=== PATIENT | male | born 1950 | race Two or more races ===

== ENCOUNTER 2021-05-02 10:30 | Emergency (ER) | payer OTHER, MEDICAID ==
[~2021-05-02] VITALS: Ht 162.6 cm; Wt 61.2 kg
[2021-05-02 11:48] VITALS: BP 164/92
[2021-05-02 13:51] LABS: Urine Bacteria FEW /hpf (None Seen); Urine Blood Negative /uL (Negative); Urine Specific Gravity 1.021 (1.001-1.035); Urine WBC <1 /hpf (0 - 3)
[2021-05-02] MEDS ORDERED: IBUP800T27 PO (14:22)
[2021-05-02] MEDS ORDERED: PRED20TA2 PO (14:22)
== END 2021-05-02 14:27 | disposition home or self-care (01) ==
LOC: ER 10:30
DX: M51.37 Other intervertebral disc degeneration, lumbosacral region (principal); K80.20 Calculus of gallbladder without cholecystitis without obstruction; I10 Essential (primary) hypertension
CPT/HCPCS: 74176; 81001

== ENCOUNTER 2024-02-09 05:32 | Inpatient (IN) | payer OTHER, MEDICAID ==
[~2024-02-09] VITALS: Ht 147.3 cm; Wt 65.6 kg
[~2024-02-09 05:32] MED LIST: IBUP-1456 PO; PRED20TA2 PO
[2024-02-09] MEDS: ONDANSETRON HCL 4 MG/2 ML VIAL IV ONE (06:36)
[2024-02-09] MEDS: MORPHINE SULFATE 4 MG/ML SYR/VIAL IV ONE (06:38)
[2024-02-09] MEDS: SODIUM CHLORIDE 0.9% 500 ML IVB ONE (06:38)
[2024-02-09 06:54] LABS: Basophils # (auto) 0 10 ^3/uL (0-0.2); Basophils % (auto) 0.4 % (0.0-2.0); Eosinophils # (auto) 0.2 10 ^3/uL (0-0.8); Eosinophils % (auto) 1.7 % (0.0-7.0); Hematocrit 45.4 % (41.0-53.0); Hemoglobin 15.4 g/dL (13.5-17.5); Lymphocytes # (auto) 1.2 10 ^3/uL (0.4-5.4); Lymphocytes % (auto) 11.9 % (10.0-50.0); Mean Corpuscular Hemoglobin 28.8 pg (28.0-32.0); Mean Corpuscular Hgb Conc. 33.9 g/dL (32.0-36.0); Monocytes # (auto) 0.3 10 ^3/uL (0-1.3); Monocytes % (auto) 3.2 % (0.0-12.0); Neutrophils # (auto) 8.3 10 ^3/uL (1.6-8.6); Neutrophils % (auto) 82.8 % (37.0-80.0); Platelet Count (auto) 259 10^3/uL (140-450); Red Blood Cells 5.35 10^6/uL (4.5-5.90); Red Cell Distribution Width 13.8 % (11.8-14.3)
[2024-02-09 07:31] LABS: Alanine Aminotransferase 22 U/L (7-40); Albumin 4.3 g/dL (3.2-4.8); Alkaline Phosphatase 124 U/L (46-116); Anion Gap 7 (5-15); Aspartate Aminotransferase 18 U/L (13-40); BUN/Creatinine Ratio 13.9 (10.0-20.0); Blood Urea Nitrogen 14 mg/dL (9-23); Calcium 8.8 mg/dL (8.7-10.4); Carbon Dioxide 24 mmol/L (20-31); Chloride 109 mmol/L (98-107); Glucose 145 mg/dL (74-106); Lipase 37 U/L (12-53); Sodium 140 mmol/L (136-145)
[2024-02-09 07:32] LABS: Bilirubin, Total 0.4 mg/dL (0.2-1.0); Total Protein 6.8 g/dL (5.7-8.2)
[2024-02-09 08:00] VITALS: PULSE 57; O2SAT 97
[2024-02-09 08:41] LABS: Urine Bacteria None Seen /hpf (None Seen)
[2024-02-09 08:54] LABS: Urine Blood Negative /uL (Negative); Urine Clarity Clear (Clear); Urine Color Light-Yellow (Yellow); Urine Protein, UAD Negative (Negative); Urine Specific Gravity 1.014 (1.001-1.035); Urine Urobilinogen Normal (Negative); Urine WBC <1 /hpf (0 - 3); Urine pH 6.5 (5.0-9.0)
[2024-02-09] MEDS: hydrALAZINE HCL 20 MG/ML VL IV ONE (08:56)
[2024-02-09] MEDS ORDERED: PANTOPRAZOLE 40 MG TAB PO SCH (10:45)
[2024-02-09] MEDS ORDERED: MORPHINE SULFATE INJ 2 MG/ml SYRG IV PRN (10:45)
[2024-02-09] MEDS ORDERED: SODIUM CHLORIDE 0.9% 1,000 ML IV SCH (10:45)
[2024-02-09] MEDS ORDERED: ONDANSETRON HCL 4 MG/2 ML VIAL IV PRN ×2 (10:45→11:00)
[2024-02-09] MEDS: SODIUM CHLORIDE 0.9% 1,000 ML IV SCH (11:00)
[2024-02-09 12:38] VITALS: O2SAT 97
[2024-02-09] MEDS: MORPHINE SULFATE INJ 2 MG/ml SYRG IV PRN (13:04)
[2024-02-09 15:10] VITALS: BP 169/77; PULSE 66; RESP 18; TEMP 98.7; O2SAT 98
[2024-02-09 15:26] VITALS: BP 169/77; PULSE 66; RESP 18; TEMP 98.7
[2024-02-09 16:04] VITALS: BP 115/72; PULSE 94; RESP 19; TEMP 98.4; O2SAT 96
[2024-02-09] MEDS: hydrALAZINE HCL 20 MG/ML VL IV PRN (16:19)
[2024-02-09] MEDS ORDERED: LISI10TA34 PO (16:33)
[2024-02-09] MEDS: LISINOPRIL 5 MG TAB PO ONE (17:01)
[2024-02-09 21:00] VITALS: BP 132/69; PULSE 80; RESP 18; TEMP 98.2; O2SAT 97
[2024-02-10] VITALS (7 sets, daily range): BP systolic 109–171; BP diastolic 64–85; PULSE 63–72; RESP 16–18; TEMP 97.9–99; O2SAT 96–98
[2024-02-10] MEDS: PANTOPRAZOLE 40 MG TAB PO SCH (05:06)
[2024-02-10 06:51] LABS: Chloride 108 mmol/L (98-107); Potassium 3.5 mmol/L (3.5-5.1); Sodium 138 mmol/L (136-145)
[2024-02-10 06:52] LABS: Anion Gap 8 (5-15); Carbon Dioxide 22 mmol/L (20-31)
[2024-02-10 06:53] LABS: Calcium 8.9 mg/dL (8.7-10.4)
[2024-02-10 06:57] LABS: BUN/Creatinine Ratio 12.5 (10.0-20.0); Basophils # (auto) 0 10 ^3/uL (0-0.2); Basophils % (auto) 0.4 % (0.0-2.0); Blood Urea Nitrogen 10 mg/dL (9-23); Eosinophils # (auto) 0.1 10 ^3/uL (0-0.8); Eosinophils % (auto) 0.9 % (0.0-7.0); Glucose 100 mg/dL (74-106); Hematocrit 43.1 % (41.0-53.0); Hemoglobin 14.5 g/dL (13.5-17.5); Lymphocytes # (auto) 1.2 10 ^3/uL (0.4-5.4); Lymphocytes % (auto) 14.3 % (10.0-50.0); Mean Corpuscular Hemoglobin 28.5 pg (28.0-32.0); Mean Corpuscular Hgb Conc. 33.8 g/dL (32.0-36.0); Mean Corpuscular Volume 84.6 fL (80.0-100.0); Monocytes # (auto) 0.7 10 ^3/uL (0-1.3); Monocytes % (auto) 8.4 % (0.0-12.0); Neutrophils # (auto) 6.3 10 ^3/uL (1.6-8.6); Platelet Count (auto) 236 10^3/uL (140-450); Red Cell Distribution Width 14.3 % (11.8-14.3); White Blood Cell 8.3 10^3/uL (4.4-10.8)
[2024-02-10] MEDS ORDERED: LISINOPRIL 5 MG TAB PO SCH (10:00)
[2024-02-10 10:19] LABS: INR 1.15 (0.9-1.15); Partial Thromboplastin Time 27.6 SEC (24.5-34.5); Prothrombin Time 12.1 sec (9.3-11.8)
[2024-02-10 10:59] LABS: Free T3 2.4 pg/mL (2.3-4.2); Free T4 (Free Thyroxine) 1.6 ng/dL (0.89-1.76)
[2024-02-10] MEDS: LISINOPRIL 5 MG TAB PO SCH (12:14)
[2024-02-10] MEDS: ERGOCALCIFEROL 50,000 UNIT(1.25MG) CAP PO SCH (12:14)
[2024-02-11 01:00] VITALS: BP 140/64; PULSE 61; RESP 18; TEMP 97.6; O2SAT 97
[2024-02-11 07:45] VITALS: RESP 17
[2024-02-11 09:00] VITALS: BP 165/96; PULSE 64; RESP 17; TEMP 97.4; O2SAT 97
[2024-02-11 12:37] VITALS: BP 158/81; PULSE 99; RESP 17; TEMP 36.3; O2SAT 97
[2024-02-11] MEDS ORDERED: LEVO750T40 PO (12:49)
[2024-02-11] MEDS ORDERED: METR-344 PO (12:49)
== END 2024-02-11 13:35 | disposition home or self-care (01) | DRG 445 ==
LOC: ER 05:32 → OVERFLOW 10:51 → ER 10:51 → CENTRAL 15:14
PROVIDERS: ADMIT Internal Medicine; ATTEND Internal Medicine
DX: K80.20 Calculus of gallbladder without cholecystitis without obstruction (principal); Z68.41 Body mass index [BMI] 40.0-44.9, adult; I16.0 Hypertensive urgency; G89.4 Chronic pain syndrome; N40.0 Benign prostatic hyperplasia without lower urinary tract symptoms; E55.9 Vitamin D deficiency, unspecified; K82.8 Other specified diseases of gallbladder; E66.01 Morbid (severe) obesity due to excess calories
CPT/HCPCS: 36415; 71045; 74176; 74181; 76705; 80048; 80053; 81001; 82306; 82607; 83036; 83690; 83735; 84439; 84443; 84481; 85025; 85610; 85730; 96374; 96375; 99291; G0378; J2405

== ENCOUNTER 2024-03-13 16:08 | Inpatient (IN) | payer OTHER, MEDICAID ==
[~2024-03-13] VITALS: Ht 165.1 cm; Wt 63.0 kg
[~2024-03-13 16:08] MED LIST changes: +LEVO750T40 PO; +LISI10TA34 PO; +METR-344 PO
[2024-03-13 16:40] LABS: Urine Bacteria None Seen /hpf (None Seen)
[2024-03-13 16:46] LABS: Urine Blood Negative /uL (Negative); Urine Clarity Clear (Clear); Urine Color Yellow (Yellow); Urine Hyaline Cast FEW /lpf (0 - 2); Urine Mucus FEW (None Seen); Urine Protein, UAD Negative (Negative); Urine Specific Gravity 1.026 (1.001-1.035); Urine Urobilinogen Normal (Negative); Urine WBC <1 /hpf (0 - 3)
--- NOTE | 2024-03-13 16:46 | ED.PDOC ---
History of Present Illness HPI Comments 73M presents to the ER w/ spouse and w/ no prior Hx associated to the c/c of of ABD pain. Pt reports on being admitted to the ER for 2 days, due from something of the gallbladder which was 3 weeks ago. Pt states on having the symptoms start today at 1200 w/ left sided CP, RUQ and epigastric pain as well as dizziness and N/. PMHx of HTN, Gallstones and prostate. Denies chills, fever, /V/D, SOB or other associated symptoms, modifiers, or recent injuries at this time. Chief Complaint: Abdominal Pain Time Seen by MD: 16:30 Reviewed Notes: Nurses Notes, Medications, Allergies Allergies: Coded Allergies: NO KNOWN ALLERGIES (Unverified , 03/13/24) Information Source: Patient, Spouse Mode of Arrival: Ambulatory Severity: Moderate Timing: Hours Duration: Since onset, Hours Prehospital treatment: None Past Medical History PAST MEDICAL HISTORY: Gallstones, HTN Past Medical History (Other): Prostate Surgical History: Denies all surgeries Family History Family History: Reviewed,noncontributory to illness, Unknown Social History Smoker: Non-Smoker Alcohol: Denies ETOH Use Drugs: Denies Drug Use Lives In: Home Constitutional: denies: chills, diaphoresis, fatigue, fever, malaise, sweats, weakness, others EENTM: denies: blurred vision, double vision, ear bleeding, ear discharge, ear drainage, ear pain, ear ringing, eye pain, eye redness, hearing loss, mouth pain, mouth swelling, nasal discharge, nose bleeding, nose congestion, nose pain, photophobia, tearing, throat pain, throat swelling, voice changes, others Respiratory: denies: cough, hemoptysis, orthopnea, SOB at rest, shortness of breath, SOB with excertion, stridor, wheezing, others Cardiovascular: reports: chest pain; denies: dizzy spells, diaphoresis, Dyspnea on exertion, edema, irregular heart beat, left arm pain, lightheadedness, pa lpitations, PND, syncope, others Gastrointestinal: reports: abdominal pain, nausea; denies: abdomen distended, blood streaked bowels, constipated, diarrhea, dysphagia, difficulty swallowing, hematemesis, melena, poor appetite, poor fluid intake, rectal bleeding, rectal pain, vomiting, others Genitourinary: denies: burning, dysuria, flank pain, frequency, hematuria, incontinence, penile discharge, penile sore, pain, testicle pain, testicle swelling, urgency, others Neurological: reports: dizziness; denies: fainting, headache, left sided numbness, left sided weakness, numbness, paresthesia, pre-existing deficit, right sided numbness, right sided weakness, seizure, speech problems, tingling, tremors, weakness, others Musculoskeletal: denies: back pain, gout, joint pain, joint swelling, muscle pain, muscle stiffness, neck pain, others Integumetry: denies: bruises, change in color, change in hair/nails, dryness, laceration, lesions, lumps, rash, wounds, others Allergic/Immunocompromised: denies: Difficulty Healing, Frequent Infections, Hives, Itching, others Hematologic/Lymphatic: denies: anemia, blood clots, easy bleeding, easy bruising, swollen glands, others Endocrine: denies: excessive hunger, excessive sweating, excessive thirst, excessive urination, flushing, intolerance to cold, intolerance to heat, unexplained weight gain, unexplained weight loss, others Psychiatric: denies: anxiety, bipolar disorder, depression, hopeless, panic disorder, schizophrenia, sleepless, suicidal, others All Other Systems: Reviewed and Negative Physical Exam General Appearance: Moderate Distress HEENT: Normal ENT Inspection, Pharynx Normal, TMs Normal Neck: Full Range of Motion, Non-Tender, Normal, Normal Inspection Respiratory: Chest Non-Tender, Lungs Clear, No Accessory Muscle Use, No Respiratory Distress, Normal Breath Sounds Cardiovascular: No Edema, No JVD, No Murmur, No Gallop, Normal Peripheral Pulses, Regular Rate/Rhythm Breast Exam: Deferred Gastrointestinal: No Organomegaly, No Pulsatile Mass, Normal Bowel Sounds, RUQ, Soft, Tenderness Genitalia: Deferred Pelvic: Deferred Rectal: Deferred Extremities: No calf tenderness, Normal capillary refill, Normal inspection, Normal range of motion, Non-tender, No pedal edema Musculoskeletal : Apperance: Normal Neurologic: Alert, arborist representative II-XII nml as Tested, No Motor Deficits, Normal Affect, Normal Mood, No Sensory Deficits Cerebellar Function: Normal Reflexes: Normal Skin: Dry, Normal Color, Warm Lymphatic: No Adenopathy Was a procedure done? Was a procedure done?: No Differential Dx Considerations may include: Cholelithiasis, cholecystitis, generalized weakness X-Ray, Labs, Meds, VS Vital Signs Date Time Temp Pulse Resp B/P (MAP) Pulse Ox O2 Delivery O2 Flow Rate FiO2 03/13/24 16:26 98.7 86 18 154/97 (116) 96 Lab Test 03/13/24 16:46 03/13/24 16:39 Range/Units White Blood Count 13.6 H 4.4-10.8 10^3/uL Red Blood Count 5.31 4.5-5.90 10^6/uL Hemoglobin 14.9 13.5-17.5 g/dL Hematocrit 44.6 41.0-53.0 % Mean Corpuscular Volume 84.0 80.0-100.0 fL Mean Corpuscular Hemoglobin 28.1 28.0-32.0 pg Mean Corpuscular Hemoglobin Concent 33.4 32.0-36.0 g/dL Red Cell Distribution Width 14.0 11.8-14.3 % Platelet Count 266 140-450 10^3/uL Mean Platelet Volume 8.1 6.9-10.8 fL Neutrophils (%) (Auto) 80.2 H 37.0-80.0 % Lymphocytes (%) (Auto) 12.3 10.0-50.0 % Monocytes (%) (Auto) 5.1 0.0-12.0 % Eosinophils (%) (Auto) 1.8 0.0-7.0 % Basophils (%) (Auto) 0.6 0.0-2.0 % Neutrophils # (Auto) 10.9 H 1.6-8.6 10 ^3/uL Lymphocytes # (Auto) 1.7 0.4-5.4 10 ^3/uL Monocytes # (Auto) 0.7 0-1.3 10 ^3/uL Eosinophils # (Auto) 0.2 0-0.8 10 ^3/uL Basophils # (Auto) 0.1 0-0.2 10 ^3/uL Nucleated Red Blood Cells 0.0 % Sodium Level 138 136-145 mmol/L Potassium Level 3.8 3.5-5.1 mmol/L Chloride Level 104 98-107 mmol/L Carbon Dioxide Level 26 20-31 mmol/L Anion Gap 8 5-15 Blood Urea Nitrogen 10 9-23 mg/dL Creatinine 0.90 0.700-1.30 mg/dL Glomerular Filtration Rate Calc 90 >90 mL/min BUN/Creatinine Ratio 11.1 10.0-20.0 Serum Glucose 92 74-106 mg/dL Calcium Level 10.1 8.7-10.4 mg/dL Total Bilirubin 0.7 0.2-1.0 mg/dL Aspartate Amino Transferase (AST) 18 13-40 U/L Alanine Aminotransferase (ALT) 24 7-40 U/L Alkaline Phosphatase 110 46-116 U/L Total Protein 7.6 5.7-8.2 g/dL Albumin 4.8 3.2-4.8 g/dL Lipase 77 H 12-53 U/L Urine Color Yellow Yellow Urine Clarity Clear Clear Urine pH 5.0 5.0-9.0 Urine Specific [place] 1.026 1.001-1.035 Urine Protein Negative Negative Urine Ketones Trace Negative Urine Blood Negative Negative /uL Urine Nitrite Negative Negative Urine Bilirubin Negative Negative Urine Urobilinogen Normal Negative mg/dL Urine Leukocyte Esterase Negative Negative /uL Urine RBC <1 0 - 3 /hpf Urine WBC <1 0 - 3 /hpf Urine Squamous Epithelial Cells None seen <5 /hpf Urine Bacteria None seen None Seen /hpf Urine Hyaline Casts Few 0 - 2 /lpf Urine Mucus Few None Seen Urine Glucose Normal Normal mg/dL Ultrasound of the gallbladder shows gallstones but no sign of cholecystitis The CBC does show an elevated white blood cell count of 13.6 The urine test is negative The chemistry panel is within normal limits except for the lipase which is elevated at 77 The patient was being admitted to the hospitalist The diagnosis is intractable abdominal pain and cholelithiasis The patient was admitted Images Reviewed?: Images reviewed and evaluated by me Time of 1ST Reevaluation: 17:00 Reevaluation 1ST: Unchanged Patient Education/Counseling: Diagnosis, Treatment, Prognosis Family Education/Counseling: Diagnosis, Treatment, Prognosis Departure 1 Departure Time of Disposition: 17:27 Impression: Primary Impression: Intractable abdominal pain Additional Impression: Cholelithiasis Qualified Codes: K80.20 - Calculus of gallbladder without cholecystitis without obstruction Disposition: ADMITTED INPATIENT Admit to: Med Surg (Intractable abdominal pain) Condition: Fair Critical Care Note Critical Care Time?: No Stability Stability form required: Yes Unstable for transfer: ED Physician Assesment (Clinical assesment) Heart Score Heart Score: Heart Score Response (Comments) Value History N/A 0 EKG N/A 0 Age N/A 0 Risk Factors N/A 0 Troponin N/A 0 Total 0 I personally scribed for TINY SIMON MD ([email or web address]) on 03/13/24 at 16:46. Electronically submitted by Duarte Lion ([email or web address]). TINY SIMON MD Mar 13, 2024 16:46
[2024-03-13 16:57] LABS: Basophils # (auto) 0.1 10 ^3/uL (0-0.2); Basophils % (auto) 0.6 % (0.0-2.0); Eosinophils # (auto) 0.2 10 ^3/uL (0-0.8); Eosinophils % (auto) 1.8 % (0.0-7.0); Hematocrit 44.6 % (41.0-53.0); Hemoglobin 14.9 g/dL (13.5-17.5); Lymphocytes # (auto) 1.7 10 ^3/uL (0.4-5.4); Lymphocytes % (auto) 12.3 % (10.0-50.0); Mean Corpuscular Hemoglobin 28.1 pg (28.0-32.0); Mean Corpuscular Hgb Conc. 33.4 g/dL (32.0-36.0); Monocytes # (auto) 0.7 10 ^3/uL (0-1.3); Monocytes % (auto) 5.1 % (0.0-12.0); Neutrophils # (auto) 10.9 10 ^3/uL (1.6-8.6); Neutrophils % (auto) 80.2 % (37.0-80.0); Platelet Count (auto) 266 10^3/uL (140-450); Red Blood Cells 5.31 10^6/uL (4.5-5.90); White Blood Cell 13.6 10^3/uL (4.4-10.8)
[2024-03-13 17:19] LABS: Alanine Aminotransferase 24 U/L (7-40); Albumin 4.8 g/dL (3.2-4.8); Alkaline Phosphatase 110 U/L (46-116); Anion Gap 8 (5-15); Aspartate Aminotransferase 18 U/L (13-40); BUN/Creatinine Ratio 11.1 (10.0-20.0); Bilirubin, Total 0.7 mg/dL (0.2-1.0); Blood Urea Nitrogen 10 mg/dL (9-23); Calcium 10.1 mg/dL (8.7-10.4); Carbon Dioxide 26 mmol/L (20-31); Chloride 104 mmol/L (98-107); Glucose 92 mg/dL (74-106); Lipase 77 U/L (12-53); Potassium 3.8 mmol/L (3.5-5.1); Sodium 138 mmol/L (136-145); Total Protein 7.6 g/dL (5.7-8.2)
--- NOTE | 2024-03-13 17:24 | DVH ---
INDICATION: ruq pain TECHNIQUE: Multiple real-time sonographic images were obtained of the right upper quadrant. COMPARISON: None FINDINGS: The liver demonstrates heterogeneous echotexture without focal mass lesions. The liver angel luis sures 14.2 cm. There is no intrahepatic or extrahepatic ductal dilatation. The common duct measures 0.5 cm. Cholelithiasis is seen. No pericholecystic fluid. The gallbladder wall measures 0.2 cm and is withi n normal limits. The right kidney measures 9.2 cm. The right kidney is normal in contour, size, and shape. The echog enicity is normal. There is no hydronephrosis. The pancreas is not well visualized due to overlying bowel gas. IMPRESSION: 1. Cholelithiasis without evidence of cholecystitis.
[2024-03-13] MEDS: SODIUM CHLORIDE 0.9% 500 ML IVB ONE (18:24)
[2024-03-13 20:00] VITALS: PULSE 67; RESP 18; O2SAT 97
[2024-03-13] MEDS ORDERED: ACETAMINOPHEN 325 MG TAB PO PRN (23:00)
[2024-03-14] VITALS (13 sets, daily range): BP systolic 122–184; BP diastolic 67–100; PULSE 53–82; RESP 16–20; TEMP 97.1–98.2; O2SAT 97–98
[2024-03-14] MEDS: HYDROcodone-ACET 5/325MG TAB PO PRN (00:02)
[2024-03-14] MEDS: cloNIDine HCL 0.1 MG TAB PO ONE (00:20)
[2024-03-14 04:33] LABS: Basophils # (auto) 0.1 10 ^3/uL (0-0.2); Basophils % (auto) 0.8 % (0.0-2.0); Eosinophils # (auto) 0.4 10 ^3/uL (0-0.8); Eosinophils % (auto) 4.5 % (0.0-7.0); Hematocrit 40.9 % (41.0-53.0); Hemoglobin 13.7 g/dL (13.5-17.5); Lymphocytes # (auto) 1.8 10 ^3/uL (0.4-5.4); Lymphocytes % (auto) 21.5 % (10.0-50.0); Mean Corpuscular Hemoglobin 28.3 pg (28.0-32.0); Mean Corpuscular Hgb Conc. 33.5 g/dL (32.0-36.0); Mean Corpuscular Volume 84.3 fL (80.0-100.0); Monocytes # (auto) 0.6 10 ^3/uL (0-1.3); Monocytes % (auto) 7.7 % (0.0-12.0); Neutrophils # (auto) 5.5 10 ^3/uL (1.6-8.6); Neutrophils % (auto) 65.5 % (37.0-80.0); Nucleated Red Blood Cells % 0.2 %; Platelet Count (auto) 231 10^3/uL (140-450); Red Blood Cells 4.86 10^6/uL (4.5-5.90); Red Cell Distribution Width 13.8 % (11.8-14.3); White Blood Cell 8.5 10^3/uL (4.4-10.8)
[2024-03-14 04:36] LABS: Chloride 106 mmol/L (98-107); Sodium 139 mmol/L (136-145)
[2024-03-14 04:37] LABS: Anion Gap 5 (5-15); Carbon Dioxide 28 mmol/L (20-31)
[2024-03-14 04:38] LABS: Calcium 9.5 mg/dL (8.7-10.4)
[2024-03-14 04:43] LABS: Blood Urea Nitrogen 13 mg/dL (9-23); Glucose 97 mg/dL (74-106)
--- NOTE | 2024-03-14 06:13 | DVHHP2 ---
History of Present Illness Reason for Visit: Abdominal pain History of Present Illness 73-year-old presents for evaluation of abdominal pain. Patient reports a two day history of worsening abdominal which is localized to the lower abdomen radiates to epigastric and quadrant. She states recently being diagnosed with cholelithiasis. Denies nausea or vomiting. No fever chills. Other acute complaints reported. Past Medical History Hypertension and gallstones Past Surgical History Denies Family History Noncontributory Smoke: No ALCOHOL: none Drugs: None Lives: with Family Review of Systems Review of Systems Review of systems are negative addressed HPI Allergies: Coded Allergies: NO KNOWN ALLERGIES (Unverified , 03/13/24) Medications Current Medications Medications Dose Ordered Sig/Surjit Route Start Time Stop Time Status Last Admin Dose Admin Acetaminophen/ Hydrocodone Bitart 1 tab Q4HP PRN PO 03/13/24 23:00 03/14/24 00:02 1 TAB Temazepam 15 mg QHSP PRN PO 03/13/24 23:00 Ondansetron HCl 4 mg Q4HP PRN IV 03/13/24 23:00 Acetaminophen 650 mg Q6HP PRN PO 03/13/24 23:00 Exam Vital Signs Vital Signs Date Time Temp Pulse Resp B/P (MAP) Pulse Ox O2 Delivery O2 Flow Rate FiO2 03/14/24 01:56 97.8 63 16 135/77 (96) 98 97.8 03/13/24 20:00 Room Air* 0 21 Exam Gen: 73-year-old in mild distress. Skin: Warm, dry, normal color and texture, no rash. HEENT: Normocephalic atraumatic, mucous membranes moist and pink. Neck: Cervical and supraclavicular nodes normal without enlargement, trachea is midline, thyroid gland is normal without masses. Pulmonary: Clear to auscultation and percussion bilaterally. Cardiac: Regular rate and rhythm. No murmur Abdomen: Soft, nontender, nondistended, bowel sounds present all 4 quadrants, no guarding, no rigidity, no organomegaly. Extremities: No cyanosis, clubbing, no edema Neuro: Cranial nerves II through XII grossly intact, normal affect and speech, no focal motor deficits. Labs/Xrays ORDERING PHYSICIAN: TINY SIMON MD PROCEDURE(s): GBUS - GALLBLADDER REASON: ruq pain ORDER NUMBER(s): [id number], ACCESSION NUMBER(s): [id number] INDICATION: ruq pain TECHNIQUE: Multiple real-time sonographic images were obtained of the right upper quadrant. COMPARISON: None FINDINGS: The liver demonstrates heterogeneous echotexture without focal mass lesions. The liver measures 14.2 cm. There is no intrahepatic or extrahepatic ductal dilatation. The common duct measures 0.5 cm. Cholelithiasis is seen. No pericholecystic fluid. The gallbladder wall measures 0.2 cm and is within normal limits. The right kidney measures 9.2 cm. The right kidney is normal in contour, size, and shape. The echogenicity is normal. There is no hydronephrosis. The pancreas is not well visualized due to overlying bowel gas. IMPRESSION: 1. Cholelithiasis without evidence of cholecystitis. Labs Test 03/14/24 04:14 03/13/24 16:46 03/13/24 16:39 Range/Units White Blood Count 8.5 # 4.4-10.8 10^3/uL Red Blood Count 4.86 4.5-5.90 10^6/uL Hemoglobin 13.7 13.5-17.5 g/dL Hematocrit 40.9 L 41.0-53.0 % Mean Corpuscular Volume 84.3 80.0-100.0 fL Mean Corpuscular Hemoglobin 28.3 28.0-32.0 pg Mean Corpuscular Hemoglobin Concent 33.5 32.0-36.0 g/dL Red Cell Distribution Width 13.8 11.8-14.3 % Platelet Count 231 140-450 10^3/uL Mean Platelet Volume 8.1 6.9-10.8 fL Neutrophils (%) (Auto) 65.5 37.0-80.0 % Lymphocytes (%) (Auto) 21.5 10.0-50.0 % Monocytes (%) (Auto) 7.7 0.0-12.0 % Eosinophils (%) (Auto) 4.5 0.0-7.0 % Basophils (%) (Auto) 0.8 0.0-2.0 % Neutrophils # (Auto) 5.5 1.6-8.6 10 ^3/uL Lymphocytes # (Auto) 1.8 0.4-5.4 10 ^3/uL Monocytes # (Auto) 0.6 0-1.3 10 ^3/uL Eosinophils # (Auto) 0.4 0-0.8 10 ^3/uL Basophils # (Auto) 0.1 0-0.2 10 ^3/uL Nucleated Red Blood Cells 0.2 % Sodium Level 139 136-145 mmol/L Potassium Level 4.0 3.5-5.1 mmol/L Chloride Level 106 98-107 mmol/L Carbon Dioxide Level 28 20-31 mmol/L Anion Gap 5 5-15 Blood Urea Nitrogen 13 9-23 mg/dL Creatinine 1.00 0.700-1.30 mg/dL Glomerular Filtration Rate Calc 79 >90 mL/min BUN/Creatinine Ratio 13.0 10.0-20.0 Serum Glucose 97 74-106 mg/dL Calcium Level 9.5 8.7-10.4 mg/dL Total Bilirubin 0.7 0.2-1.0 mg/dL Aspartate Amino Transferase (AST) 18 13-40 U/L Alanine Aminotransferase (ALT) 24 7-40 U/L Alkaline Phosphatase 110 46-116 U/L Total Protein 7.6 5.7-8.2 g/dL Albumin 4.8 3.2-4.8 g/dL Lipase 77 H 12-53 U/L Urine Color Yellow Yellow Urine Clarity Clear Clear Urine pH 5.0 5.0-9.0 Urine Specific [place] 1.026 1.001-1.035 Urine Protein Negative Negative Urine Ketones Trace Negative Urine Blood Negative Negative /uL Urine Nitrite Negative Negative Urine Bilirubin Negative Negative Urine Urobilinogen Normal Negative mg/dL Urine Leukocyte Esterase Negative Negative /uL Urine RBC <1 0 - 3 /hpf Urine WBC <1 0 - 3 /hpf Urine Squamous Epithelial Cells None seen <5 /hpf Urine Bacteria None seen None Seen /hpf Urine Hyaline Casts Few 0 - 2 /lpf Urine Mucus Few None Seen Urine Glucose Normal Normal mg/dL Assessment/Plan Assessment/Plan Assessment Acute abdominal pain Cholelithiasis Accelerated hypertension Leukocytosis Plan admit the patient to [facility] to the hospitalist Surgical consult HIDA scan pending Continue treatment per orders. Plan discussed with: Patient My Orders Orders - GAVIN TINSLEY AGACNP Procedure Category Date Status Time Admit ADMIT 03/13/24 Transmitted 22:54 Hydrocodone-Acet PHA 03/13/24 In Process 5/325mg Tab ([place] 23:00 Temazepam (Restoril) PHA 03/13/24 In Process 23:00 Ondansetron Hcl PHA 03/13/24 In Process (Zofran) 23:00 Condition: Stable RAJESH 03/13/24 In Process 22:54 Acetaminophen Tablet PHA 03/13/24 In Process (Tylenol Tablet) 23:00 Clear Liq Diet DIET 03/14/24 Transmitted Breakfast Bedrest With Bathroom RAJESH 03/13/24 In Process Privileg 22:54 Date of Service: Mar 13, 2024 Billing Provider: GAVIN TINSLEY Common Visit Codes: [id number] INP/OBS CARE (MOD) GAVIN TINSLEY Mar 14, 2024 06:13
[2024-03-14] MEDS: MORPHINE SULFATE INJ 2 MG/ml SYRG IV ONE (08:48)
[2024-03-14] MEDS: LISINOPRIL 5 MG TAB PO SCH (10:24)
--- NOTE | 2024-03-14 11:57 | DVH ---
Procedure: NM NM HIDA SCAN Exam Date: 03/14/2024 07:42 AM Clinical History: Abdominal pain Comparison Study: Ultrasound dated 03/13/2024 Nuclear Medicine Hepatobiliary Scan. Technique: Following the intravenous administration of 5.2 mCi of technetium 99m labeled Choletec multiple plana r abdominal planar images were obtained in anterior projection in 1 minute intervals for 60 minutes . Imaging was continued for another 30 minutes after injection of 2 mg of morphine. Findings: The liver appears grossly normal in size. There is no abnormal persistence of the cardiac or blood po ol activity. There is prompt visualization of the small bowel. Gallbladder filled up after morphine a ugmentation. Impression: 1. No evidence of cystic duct or common bile duct obstruction.
--- NOTE | 2024-03-14 14:24 | DVHPN2 ---
Subjective 73-year-old male came with abdominal pain again, apparently he had this pain before and was referred to General surgery and was going to see the surgeon tomorrow but he had the pain for 2 days now so he came back He describes the pain as both lower abdominal right and left-sided associated with nausea but no vomiting Gallbladder ultrasound showed gallstones without cholecystitis He also just had and HIDA scan this morning which was negative for obstruction Changes from previous H/P or p: Changes Objective Vitals Vital Signs Date Time Temp Pulse Resp B/P (MAP) Pulse Ox O2 Delivery O2 Flow Rate FiO2 03/14/24 12:43 97.7 61 18 166/90 (115) 98 97.7 03/14/24 08:00 Room Air* 0 21 General Appearance: Alert, Oriented X3, Cooperative, mild distress Lungs: Clear to auscultation, Normal air movement Cardiovascular: Regular rate, Normal S1, Normal S2, No murmurs Abdomen: Normal bowel sounds, Soft, No tenderness Extremities: No edema Medications Current Medications Medications Dose Ordered Sig/Surjit Route Start Time Stop Time Status Last Admin Dose Admin Acetaminophen/ Hydrocodone Bitart 1 tab Q4HP PRN PO 03/13/24 23:00 03/14/24 00:02 1 TAB Temazepam 15 mg QHSP PRN PO 03/13/24 23:00 Ondansetron HCl 4 mg Q4HP PRN IV 03/13/24 23:00 Acetaminophen 650 mg Q6HP PRN PO 03/13/24 23:00 Lisinopril 10 mg DAILY PO 03/14/24 10:00 03/14/24 10:24 10 MG Tamsulosin HCl 0.4 mg QPM PO 03/14/24 18:00 Laboratory Results Laboratory Tests 03/14/24 04:14 Chemistry Test 03/13/24 16:46 03/14/24 04:14 Albumin 4.8 g/dL (3.2-4.8) Calcium Level 10.1 mg/dL (8.7-10.4) 9.5 mg/dL (8.7-10.4) Total Protein 7.6 g/dL (5.7-8.2) Lipid panel Test 03/13/24 16:46 Lipase 77 U/L (12-53) H LFT Test 03/13/24 16:46 Alanine Aminotransferase (ALT) 24 U/L (7-40) Alkaline Phosphatase 110 U/L (46-116) Aspartate Amino Transferase (AST) 18 U/L (13-40) Total Bilirubin 0.7 mg/dL (0.2-1.0) Urinalysis Test 03/13/24 16:39 Urine Color Yellow (Yellow) Urine Clarity Clear (Clear) Urine pH 5.0 (5.0-9.0) Urine Specific [place] 1.026 (1.001-1.035) Urine Protein Negative (Negative) Urine Ketones Trace (Negative) Urine Blood Negative /uL (Negative) Urine Nitrite Negative (Negative) Urine Bilirubin Negative (Negative) Urine Urobilinogen Normal mg/dL (Negative) Urine Leukocyte Esterase Negative /uL (Negative) Urine RBC <1 /hpf (0 - 3) Urine WBC <1 /hpf (0 - 3) Urine Squamous Epithelial Cells None seen /hpf (<5) Urine Bacteria None seen /hpf (None Seen) Urine Hyaline Casts Few /lpf (0 - 2) Urine Mucus Few (None Seen) Urine Glucose Normal mg/dL (Normal) Assessment/Plan Assessment/Plan Abdominal pain Cholelithiasis Hypertension Plan Continue clear liquid diet Surgical consultation Resume home medications Hydralazine p.r.n. for hypertension Code Advance directives discussed for more than 15 minutes Plan discussed with: Patient Date of Service: Mar 14, 2024 Billing Provider: LELO NOLAN MD Common Visit Codes: [id number] INP/OBS CARE(HIGH) LELO NOLAN MD Mar 14, 2024 14:24
[2024-03-14] MEDS: hydrALAZINE HCL 20 MG/ML VL IV PRN (16:11)
[2024-03-14] MEDS ORDERED: TAMS0.4C39 PO (17:18)
[2024-03-14] MEDS: LISINOPRIL 5 MG TAB PO ONE (17:59)
[2024-03-14] MEDS: TAMSULOSIN HYDROCHLORIDE 0.4 MG CAP PO SCH (17:59)
[2024-03-15] VITALS (8 sets, daily range): BP systolic 93–159; BP diastolic 58–85; PULSE 65–97; RESP 15–18; TEMP 97.6–98.2; O2SAT 95–99
[2024-03-15 08:39] LABS: Alanine Aminotransferase 23 U/L (7-40); Albumin 4.4 g/dL (3.2-4.8); Alkaline Phosphatase 101 U/L (46-116); Anion Gap 10 (5-15); Aspartate Aminotransferase 19 U/L (13-40); BUN/Creatinine Ratio 10.5 (10.0-20.0); Blood Urea Nitrogen 10 mg/dL (9-23); Carbon Dioxide 24 mmol/L (20-31); Chloride 102 mmol/L (98-107); Glucose 90 mg/dL (74-106); Potassium 4.2 mmol/L (3.5-5.1); Sodium 136 mmol/L (136-145)
[2024-03-15 08:40] LABS: Bilirubin, Total 1.2 mg/dL (0.2-1.0); Total Protein 7.3 g/dL (5.7-8.2)
[2024-03-15 09:23] LABS: INR 1.08 (0.9-1.15); Partial Thromboplastin Time 28.7 SEC (24.5-34.5); Prothrombin Time 11.4 sec (9.3-11.8)
--- NOTE | 2024-03-15 09:36 | DVHPN2 ---
Subjective He is still complaining of right upper and right lower abdominal pain with some nausea No vomiting Changes from previous H/P or p: Changes Objective Vitals Vital Signs Date Time Temp Pulse Resp B/P (MAP) Pulse Ox O2 Delivery O2 Flow Rate FiO2 03/15/24 05:00 97.6 69 17 117/70 (86) 97 97.6 03/14/24 20:00 Room Air* 0 21 Intake/Output Intake and Output 03/15/24 07:00 Intake Total 700 ml Balance 700 ml Intake Oral 700 ml # Voids 5 General Appearance: Alert, Oriented X3, Cooperative, mild distress Lungs: Clear to auscultation, Normal air movement Cardiovascular: Regular rate, Normal S1, Normal S2, No murmurs Abdomen: Normal bowel sounds, Soft, No tenderness, Other (Right upper quadrant tenderness) Extremities: No edema Medications Current Medications Medications Dose Ordered Sig/Surjit Route Start Time Stop Time Status Last Admin Dose Admin Acetaminophen/ Hydrocodone Bitart 1 tab Q4HP PRN PO 03/13/24 23:00 03/14/24 16:11 1 TAB Temazepam 15 mg QHSP PRN PO 03/13/24 23:00 Ondansetron HCl 4 mg Q4HP PRN IV 03/13/24 23:00 Acetaminophen 650 mg Q6HP PRN PO 03/13/24 23:00 Lisinopril 10 mg DAILY PO 03/14/24 10:00 03/14/24 10:24 10 MG Tamsulosin HCl 0.4 mg QPM PO 03/14/24 18:00 03/14/24 17:59 0.4 MG Hydralazine HCl 10 mg Q6HP PRN IV 03/14/24 14:30 03/14/24 16:11 10 MG Laboratory Results Laboratory Tests 03/14/24 04:14 03/15/24 07:57 Chemistry Test 03/15/24 07:57 Albumin 4.4 g/dL (3.2-4.8) Calcium Level 10.0 mg/dL (8.7-10.4) Total Protein 7.3 g/dL (5.7-8.2) Coagulation Test 03/15/24 07:57 Prothrombin Time 11.4 sec (9.3-11.8) Prothrombin Time INR 1.08 (0.9-1.15) Activated Partial Thromboplast Time 28.7 SEC (24.5-34.5) LFT Test 03/15/24 07:57 Alanine Aminotransferase (ALT) 23 U/L (7-40) Alkaline Phosphatase 101 U/L (46-116) Aspartate Amino Transferase (AST) 19 U/L (13-40) Total Bilirubin 1.2 mg/dL (0.2-1.0) H Urinalysis Test 03/13/24 16:39 Urine Color Yellow (Yellow) Urine Clarity Clear (Clear) Urine pH 5.0 (5.0-9.0) Urine Specific [place] 1.026 (1.001-1.035) Urine Protein Negative (Negative) Urine Ketones Trace (Negative) Urine Blood Negative /uL (Negative) Urine Nitrite Negative (Negative) Urine Bilirubin Negative (Negative) Urine Urobilinogen Normal mg/dL (Negative) Urine Leukocyte Esterase Negative /uL (Negative) Urine RBC <1 /hpf (0 - 3) Urine WBC <1 /hpf (0 - 3) Urine Squamous Epithelial Cells None seen /hpf (<5) Urine Bacteria None seen /hpf (None Seen) Urine Hyaline Casts Few /lpf (0 - 2) Urine Mucus Few (None Seen) Urine Glucose Normal mg/dL (Normal) Assessment/Plan Assessment/Plan Abdominal pain Cholelithiasis Hypertension Plan 03/14/2024: Continue clear liquid diet Surgical consultation Resume home medications Hydralazine p.r.n. for hypertension Code Advance directives discussed for more than 15 minutes 03/15/2024: Surgical consult is still pending Monitor the patient closely Clear liquid diet Pain management as needed Plan discussed with: Patient My Orders Orders - LELO NOLAN MD Procedure Category Date Status Time Hydralazine Injection PHA 03/14/24 In Process (Apresoline Inject 14:30 Date of Service: Mar 15, 2024 Billing Provider: LELO NOLAN MD Common Visit Codes: [id number] INP/OBS CARE(HIGH) LELO NOLAN MD Mar 15, 2024 09:36
--- NOTE | 2024-03-15 12:10 | DVHINCON2 ---
Date of service: Mar 15, 2024 Family History: Asthma G8 FATHER, FHx: kidney disease G8 MOTHER, Allergies: Coded Allergies: NO KNOWN ALLERGIES (Unverified , 02/09/24) Home Meds Reported Medications Tamsulosin Hcl (Tamsulosin Hcl) 0.4 Mg Cap, 1 CAP PO DAILY 03/14/24 Lisinopril (Lisinopril) 10 Mg Tab, 10 MG PO DAILY for 30 Days, MG 02/09/24 Current Medications Current Medications Medications (Trade) Dose Ordered Sig/Surjit Route PRN Reason Start Time Stop Time Status Last Admin Tamsulosin HCl (Flomax) 0.4 mg QPM PO 03/14/24 18:00 03/14/24 17:59 Hydralazine HCl (Apresoline Injection) 10 mg Q6HP PRN IV SBP>150 03/14/24 14:30 03/14/24 16:11 Vital Signs Vital Signs Date Time Temp Pulse Resp B/P (MAP) Pulse Ox O2 Delivery O2 Flow Rate FiO2 03/15/24 10:43 147/78 03/15/24 08:00 77 17 98 Room Air* 0 21 03/15/24 05:00 97.6 97.6 Labs/Diagnostic Data Labs Test 03/15/24 07:57 03/14/24 04:14 03/13/24 16:46 03/13/24 16:39 Range/Units Prothrombin Time 11.4 9.3-11.8 sec Prothrombin Time INR 1.08 0.9-1.15 Activated Partial Thromboplast Time 28.7 24.5-34.5 SEC Sodium Level 136 136-145 mmol/L Potassium Level 4.2 3.5-5.1 mmol/L Chloride Level 102 98-107 mmol/L Carbon Dioxide Level 24 20-31 mmol/L Anion Gap 10 5-15 Blood Urea Nitrogen 10 9-23 mg/dL Creatinine 0.95 0.700-1.30 mg/dL Glomerular Filtration Rate Calc 85 >90 mL/min BUN/Creatinine Ratio 10.5 10.0-20.0 Serum Glucose 90 74-106 mg/dL Calcium Level 10.0 8.7-10.4 mg/dL Total Bilirubin 1.2 H 0.2-1.0 mg/dL Aspartate Amino Transferase (AST) 19 13-40 U/L Alanine Aminotransferase (ALT) 23 7-40 U/L Alkaline Phosphatase 101 46-116 U/L Total Protein 7.3 5.7-8.2 g/dL Albumin 4.4 3.2-4.8 g/dL White Blood Count 8.5 # 4.4-10.8 10^3/uL Red Blood Count 4.86 4.5-5.90 10^6/uL Hemoglobin 13.7 13.5-17.5 g/dL Hematocrit 40.9 L 41.0-53.0 % Mean Corpuscular Volume 84.3 80.0-100.0 fL Mean Corpuscular Hemoglobin 28.3 28.0-32.0 pg Mean Corpuscular Hemoglobin Concent 33.5 32.0-36.0 g/dL Red Cell Distribution Width 13.8 11.8-14.3 % Platelet Count 231 140-450 10^3/uL Mean Platelet Volume 8.1 6.9-10.8 fL Neutrophils (%) (Auto) 65.5 37.0-80.0 % Lymphocytes (%) (Auto) 21.5 10.0-50.0 % Monocytes (%) (Auto) 7.7 0.0-12.0 % Eosinophils (%) (Auto) 4.5 0.0-7.0 % Basophils (%) (Auto) 0.8 0.0-2.0 % Neutrophils # (Auto) 5.5 1.6-8.6 10 ^3/uL Lymphocytes # (Auto) 1.8 0.4-5.4 10 ^3/uL Monocytes # (Auto) 0.6 0-1.3 10 ^3/uL Eosinophils # (Auto) 0.4 0-0.8 10 ^3/uL Basophils # (Auto) 0.1 0-0.2 10 ^3/uL Nucleated Red Blood Cells 0.2 % Lipase 77 H 12-53 U/L Urine Color Yellow Yellow Urine Clarity Clear Clear Urine pH 5.0 5.0-9.0 Urine Specific [place] 1.026 1.001-1.035 Urine Protein Negative Negative Urine Ketones Trace Negative Urine Blood Negative Negative /uL Urine Nitrite Negative Negative Urine Bilirubin Negative Negative Urine Urobilinogen Normal Negative mg/dL Urine Leukocyte Esterase Negative Negative /uL Urine RBC <1 0 - 3 /hpf Urine WBC <1 0 - 3 /hpf Urine Squamous Epithelial Cells None seen <5 /hpf Urine Bacteria None seen None Seen /hpf Urine Hyaline Casts Few 0 - 2 /lpf Urine Mucus Few None Seen Urine Glucose Normal Normal mg/dL Assessment ABDOMINAL PAIN CONSISTENT WITH BILIARY COLIC, ABDOMEN SOFT, NON TENDER, BILIRUBIN SLIGHTLY ELEVATED, WBC NORMAL, HIDA SCAN NEGATIVE, LAPAROSCOPIC POSSIBLY OPEN CHOLECYSTECTOMY RISKS AND COMPLICATIONS EXPLAINED Plan discussed with: Patient DIVINA OLEARY MD Mar 15, 2024 12:10
[2024-03-15] MEDS: D5W/SOD CHL 0.45%/KCL 20MEQ 1,000 ML IV SCH (15:18)
[2024-03-16] VITALS (8 sets, daily range): BP systolic 119–157; BP diastolic 63–86; PULSE 62–101; RESP 12–20; TEMP 97.4–98.3; O2SAT 91–98
--- NOTE | 2024-03-16 05:22 | DVH ---
CHEST RADIOGRAPH Indication: Chest pain Technique: Single frontal view of the chest was obtained COMPARISON: XY CHEST PORTABLE on DOS: 02/10/24 FINDINGS: Lines and Tubes: None Lungs: Clear Pleura: No effusion. No pneumothorax. Cardiomediastinal contours: Unremarkable Bones: Unremarkable IMPRESSION: No acute disease.
[2024-03-16] MEDS: ceFAZolin 2 GM/D5W100ml 100 ML IV ONE (10:50)
[2024-03-16] MEDS ORDERED: LIDOCAINE 1% INJ PF 5ML AMP ONE (10:58)
[2024-03-16] MEDS ORDERED: HYDROmorphone HCL 2 MG/ML VL/or syr IV PRN (11:00)
[2024-03-16] MEDS ORDERED: HYDROmorphone HCL 2 MG/ML VL/or syr ONE (11:24)
[2024-03-16] MEDS ORDERED: METOCLOPRAMIDE HCL 5MG/ml INJ 2ml VIAL ONE (11:26)
[2024-03-16] MEDS ORDERED: KETOROLAC TROMETH 30 MG/ML 1ML VIAL ONE (11:26)
[2024-03-16] MEDS ORDERED: ONDANSETRON HCL 4 MG/2 ML VIAL ONE (11:26)
[2024-03-16] MEDS ORDERED: ePHEDrine SULFATE 50 MG/ML AMP ONE (11:34)
[2024-03-16] MEDS ORDERED: hydrALAZINE HCL 20 MG/ML VL ONE (12:02)
[2024-03-16] MEDS ORDERED: SUGAMMADEX 200mg/2ml Vial (100MG/ML) IV ONE (12:02)
--- NOTE | 2024-03-16 14:46 | DVHOP ---
DATE OF SURGERY: 03/16/2024 PREOPERATIVE DIAGNOSES: Cholelithiasis, cholecystitis. POSTOPERATIVE DIAGNOSES: Cholelithiasis, cholecystitis. SURGEON: Silvestre Quinones MD PHOTOGRAMMETRIC TECH: Sharath rosales. ANESTHESIA: General endotracheal. ANESTHESIOLOGIST: Dr. Mcgee. PROCEDURE: Laparoscopy, laparoscopic cholecystectomy. DESCRIPTION OF PROCEDURE: Under general endotracheal anesthesia, with the patient's skin prepped and draped, supraumbilical incision was made and Veress needle inserted into the peritoneal cavity by the hanging drop technique in order to establish pneumoperitoneum to 15 mmHg pressure by insufflation with carbon dioxide. With the abdomen fully distended, the needle was removed and replaced with a 5 mm trocar port through which a 0-degree viewing laparoscope was inserted and under direct vision, additional 5 and 10 mm ports inserted through the abdominal wall at the right anterior axillary line at the level of the umbilicus and the subxiphoid midline skin respectively. The patient's laparoscopy was hampered by his obesity; however, no obvious unexpected pathology was encountered and the serosal surfaces visualized. The gallbladder was markedly distended. It was chronically as well as acutely inflamed and it was affected by severe inflammatory reaction at the infundibular portion of the gallbladder. It was extremely difficult to dissect the vital structures due to much scarring and fibrosis and inflammatory reaction. The cystic duct was identified, circumferentially dissected, skeletonized of fat and inflammatory tissue and traced into the hepaticocystic triangle so as to minimize the potential for inadvertent injury to the common bile duct. The cystic artery similarly was dissected, skeletonized and traced into the hepaticocystic triangle divided between metallic clips close to the gallbladder. Dissection was carried out meticulously so as to minimize the potential for inadvertent injury to the common bile duct. The gallbladder was then resected from its liver bed by electrocautery and traction. During the dissection, the gallbladder disintegrated due to inflammatory reaction and several large stones spilled out of the gallbladder. These were withdrawn and retrieved from the abdominal cavity separately. The gallbladder was then removed after its resection from the liver bed, it was inspected, it contained no evidence of malignant transformation. Right upper quadrant was irrigated, irrigant was aspirated. Hemostasis was meticulously accomplished, found to be complete. At the termination of the procedure due to the exuberant inflammatory reaction, a 10 mm Ron-Hurley drain was placed underneath the right lobe of the liver and exteriorized through the right anterior axillary line port site and secured with a 2-0 nylon suture. Pneumoperitoneum was then evacuated. The fascial defect approximated using Dexon suture. Skin was approximated using Monocryl sutures, Dermabond glue and Steri-Strips ____ using metallic skin renata. The patient remained hemodynamically stable throughout the procedure, left the operating room following an accurate needle and sponge count. MD SONI Roberts TID: [id number] RECEIPT: [id number]
[2024-03-16] MEDS: ONDANSETRON HCL 4 MG/2 ML VIAL IV ONE (14:53)
--- NOTE | 2024-03-16 15:56 | DVHPN2 ---
Subjective He was still complaining of abdominal pain this morning He underwent laparoscopic cholecystectomy today for cholelithiasis and acute on chronic cholecystitis Changes from previous H/P or p: Changes Objective Vitals Vital Signs Date Time Temp Pulse Resp B/P (MAP) Pulse Ox O2 Delivery O2 Flow Rate FiO2 03/16/24 13:00 118 14 153/80 (104) 94 03/16/24 12:13 Mask 6.0 03/16/24 12:13 97 03/16/24 12:13 97.6 97.6 Intake/Output Intake and Output 03/16/24 07:00 Intake Total 1910 ml Output Total 600 ml Balance 1310 ml Intake Oral 910 ml IV Total 1000 ml Output Urine Total 600 ml # Voids 4 General Appearance: Alert, Oriented X3, Cooperative, mild distress Lungs: Clear to auscultation, Normal air movement Cardiovascular: Regular rate, Normal S1, Normal S2, No murmurs Abdomen: Normal bowel sounds, Soft, No tenderness, Other (Right upper quadrant tenderness) Extremities: No edema Medications Current Medications Medications Dose Ordered Sig/Surjit Route Start Time Stop Time Status Last Admin Dose Admin Acetaminophen/ Hydrocodone Bitart 1 tab Q4HP PRN PO 03/13/24 23:00 03/15/24 10:49 1 TAB Temazepam 15 mg QHSP PRN PO 03/13/24 23:00 Ondansetron HCl 4 mg Q4HP PRN IV 03/13/24 23:00 Acetaminophen 650 mg Q6HP PRN PO 03/13/24 23:00 Lisinopril 10 mg DAILY PO 03/14/24 10:00 03/16/24 10:37 10 MG Tamsulosin HCl 0.4 mg QPM PO 03/14/24 18:00 03/15/24 18:26 0.4 MG Hydralazine HCl 10 mg Q6HP PRN IV 03/14/24 14:30 03/14/24 16:11 10 MG Potassium Chloride/Dextrose/ Sod Cl 1,000 ml @ 100 mls/hr Q10H IV 03/15/24 12:15 03/16/24 02:56 100 MLS/HR Laboratory Results Laboratory Tests 03/14/24 04:14 03/15/24 07:57 Urinalysis Test 03/13/24 16:39 Urine Color Yellow (Yellow) Urine Clarity Clear (Clear) Urine pH 5.0 (5.0-9.0) Urine Specific [place] 1.026 (1.001-1.035) Urine Protein Negative (Negative) Urine Ketones Trace (Negative) Urine Blood Negative /uL (Negative) Urine Nitrite Negative (Negative) Urine Bilirubin Negative (Negative) Urine Urobilinogen Normal mg/dL (Negative) Urine Leukocyte Esterase Negative /uL (Negative) Urine RBC <1 /hpf (0 - 3) Urine WBC <1 /hpf (0 - 3) Urine Squamous Epithelial Cells None seen /hpf (<5) Urine Bacteria None seen /hpf (None Seen) Urine Hyaline Casts Few /lpf (0 - 2) Urine Mucus Few (None Seen) Urine Glucose Normal mg/dL (Normal) Assessment/Plan Assessment/Plan Abdominal pain Cholelithiasis Hypertension Acute cholecystitis Plan 03/14/2024: Continue clear liquid diet Surgical consultation Resume home medications Hydralazine p.r.n. for hypertension Code Advance directives discussed for more than 15 minutes 03/15/2024: Surgical consult is still pending Monitor the patient closely Clear liquid diet Pain management as needed 03/16/2024: Pain management as needed Acute on chronic cholecystitis status post laparoscopic cholecystectomy Continue IV fluids Observed in the hospital overnight Plan discussed with: Patient My Orders Orders - LELO NOLAN MD Procedure Category Date Status Time Complete Blood Count LAB 03/17/24 Verified 04:00 Comprehensive LAB 03/17/24 Verified Metabolic Panel 04:00 Magnesium LAB 03/17/24 Verified 04:00 Date of Service: Mar 16, 2024 Billing Provider: LELO NOLAN MD Common Visit Codes: [id number] INP/OBS CARE(HIGH) LELO NOLAN MD Mar 16, 2024 15:56
[2024-03-17] VITALS (8 sets, daily range): BP systolic 112–167; BP diastolic 63–91; PULSE 83–100; RESP 16–20; TEMP 97.9–99; O2SAT 94–96
[2024-03-17 05:46] LABS: Basophils # (auto) 0 10 ^3/uL (0-0.2); Basophils % (auto) 0.2 % (0.0-2.0); Eosinophils # (auto) 0.1 10 ^3/uL (0-0.8); Eosinophils % (auto) 0.6 % (0.0-7.0); Hematocrit 40.4 % (41.0-53.0); Hemoglobin 13.2 g/dL (13.5-17.5); Lymphocytes # (auto) 1.4 10 ^3/uL (0.4-5.4); Lymphocytes % (auto) 10.4 % (10.0-50.0); Mean Corpuscular Hemoglobin 28.3 pg (28.0-32.0); Mean Corpuscular Hgb Conc. 32.7 g/dL (32.0-36.0); Mean Corpuscular Volume 86.4 fL (80.0-100.0); Monocytes # (auto) 0.9 10 ^3/uL (0-1.3); Monocytes % (auto) 6.5 % (0.0-12.0); Neutrophils # (auto) 10.9 10 ^3/uL (1.6-8.6); Neutrophils % (auto) 82.3 % (37.0-80.0); Platelet Count (auto) 242 10^3/uL (140-450); Red Blood Cells 4.68 10^6/uL (4.5-5.90); Red Cell Distribution Width 13.9 % (11.8-14.3); White Blood Cell 13.3 10^3/uL (4.4-10.8)
[2024-03-17 06:14] LABS: Alanine Aminotransferase 30 U/L (7-40); Albumin 3.8 g/dL (3.2-4.8); Alkaline Phosphatase 81 U/L (46-116); Anion Gap 8 (5-15); Aspartate Aminotransferase 25 U/L (13-40); BUN/Creatinine Ratio 12.2 (10.0-20.0); Blood Urea Nitrogen 11 mg/dL (9-23); Calcium 9.4 mg/dL (8.7-10.4); Carbon Dioxide 24 mmol/L (20-31); Chloride 105 mmol/L (98-107); Glucose 123 mg/dL (74-106); Magnesium 2.1 mg/dL (1.6-2.6); Potassium 4.3 mmol/L (3.5-5.1); Sodium 137 mmol/L (136-145)
[2024-03-17 06:15] LABS: Bilirubin, Total 0.6 mg/dL (0.2-1.0)
[2024-03-17] MEDS: ONDANSETRON HCL 4 MG/2 ML VIAL IV PRN (07:19)
[2024-03-17] MEDS: HYDROMORPHONE HCL 1 MG/ML INJ IV PRN (07:20)
--- NOTE | 2024-03-17 11:17 | DVHPN2 ---
Progress Note Date Seen: Mar 17, 2024 Medical Necessity Reason Pt with a Central, PICC or Fol: No Objective vital signs Vital Sign Date Time Temp Pulse Resp B/P (MAP) Pulse Ox O2 Delivery O2 Flow Rate FiO2 03/17/24 09:43 142/91 03/17/24 09:00 98.1 96 20 95 98.1 03/17/24 08:10 Room Air* 0 21 Total Intake and Output 03/16/24 03/16/24 03/17/24 15:00 23:00 07:00 Intake Total 200 ml 1100 ml 1600 ml Output Total 30 ml 900 ml 725 ml Balance 170 ml 200 ml 875 ml medications Current Medications Medications Dose Ordered Sig/Surjit Route Start Time Stop Time Status Last Admin Dose Admin Acetaminophen/ Hydrocodone Bitart 1 tab Q4HP PRN PO 03/13/24 23:00 03/16/24 17:05 1 TAB Temazepam 15 mg QHSP PRN PO 03/13/24 23:00 Ondansetron HCl 4 mg Q4HP PRN IV 03/13/24 23:00 03/17/24 07:19 4 MG Acetaminophen 650 mg Q6HP PRN PO 03/13/24 23:00 Lisinopril 10 mg DAILY PO 03/14/24 10:00 03/17/24 09:43 10 MG Tamsulosin HCl 0.4 mg QPM PO 03/14/24 18:00 03/16/24 17:16 0.4 MG Hydralazine HCl 10 mg Q6HP PRN IV 03/14/24 14:30 03/16/24 17:20 10 MG Potassium Chloride/Dextrose/ Sod Cl 1,000 ml @ 100 mls/hr Q10H IV 03/15/24 12:15 03/17/24 02:48 100 MLS/HR Hydromorphone HCl 0.5 mg Q4HPRN PRN IV 03/16/24 16:00 03/17/24 07:20 0.5 MG laboratory and microbiology Laboratory Tests 03/17/24 04:40 Test 03/17/24 04:40 Range/Units Serum Glucose 123 H 74-106 mg/dL Problem List/Assessment/Plan Problem List/Assessment/Plan 03/17/24 feels"better",abdom,en appropriately tender, drainage bile stained, wounds clean and well approximated. advance diet, possibly DC in am tomorrow depending on labs and condition Plan discussed with: Patient DIVINA OLEARY MD Mar 17, 2024 11:17
--- NOTE | 2024-03-17 11:40 | DVHPN2 ---
Subjective He is doing okay Still having abdominal pain once in a while RODDY drain is draining dark bloody fluid Changes from previous H/P or p: Changes Objective Vitals Vital Signs Date Time Temp Pulse Resp B/P (MAP) Pulse Ox O2 Delivery O2 Flow Rate FiO2 03/17/24 09:43 142/91 03/17/24 09:00 98.1 96 20 95 98.1 03/17/24 08:10 Room Air* 0 21 Intake/Output Intake and Output 03/17/24 07:00 Intake Total 2900 ml Output Total 1655 ml Balance 1245 ml Intake Oral 600 ml IV Total 2300 ml Output Urine Total 1475 ml Drainage Total 180 ml # Bowel Movements 3 General Appearance: Alert, Oriented X3, Cooperative, mild distress Lungs: Clear to auscultation, Normal air movement Cardiovascular: Regular rate, Normal S1, Normal S2, No murmurs Abdomen: Normal bowel sounds, Soft, No tenderness, Other (Right upper quadrant tenderness) Extremities: No edema Medications Current Medications Medications Dose Ordered Sig/Surjit Route Start Time Stop Time Status Last Admin Dose Admin Acetaminophen/ Hydrocodone Bitart 1 tab Q4HP PRN PO 03/13/24 23:00 03/16/24 17:05 1 TAB Temazepam 15 mg QHSP PRN PO 03/13/24 23:00 Ondansetron HCl 4 mg Q4HP PRN IV 03/13/24 23:00 03/17/24 07:19 4 MG Acetaminophen 650 mg Q6HP PRN PO 03/13/24 23:00 Lisinopril 10 mg DAILY PO 03/14/24 10:00 03/17/24 09:43 10 MG Tamsulosin HCl 0.4 mg QPM PO 03/14/24 18:00 03/16/24 17:16 0.4 MG Hydralazine HCl 10 mg Q6HP PRN IV 03/14/24 14:30 03/16/24 17:20 10 MG Potassium Chloride/Dextrose/ Sod Cl 1,000 ml @ 100 mls/hr Q10H IV 03/15/24 12:15 03/17/24 02:48 100 MLS/HR Hydromorphone HCl 0.5 mg Q4HPRN PRN IV 03/16/24 16:00 03/17/24 07:20 0.5 MG Laboratory Results Laboratory Tests 03/17/24 04:40 Chemistry Test 03/17/24 04:40 Albumin 3.8 g/dL (3.2-4.8) Calcium Level 9.4 mg/dL (8.7-10.4) Magnesium Level 2.1 mg/dL (1.6-2.6) Total Protein 6.0 g/dL (5.7-8.2) LFT Test 03/17/24 04:40 Alanine Aminotransferase (ALT) 30 U/L (7-40) Alkaline Phosphatase 81 U/L (46-116) Aspartate Amino Transferase (AST) 25 U/L (13-40) Total Bilirubin 0.6 mg/dL (0.2-1.0) Urinalysis Test 03/13/24 16:39 Urine Color Yellow (Yellow) Urine Clarity Clear (Clear) Urine pH 5.0 (5.0-9.0) Urine Specific [place] 1.026 (1.001-1.035) Urine Protein Negative (Negative) Urine Ketones Trace (Negative) Urine Blood Negative /uL (Negative) Urine Nitrite Negative (Negative) Urine Bilirubin Negative (Negative) Urine Urobilinogen Normal mg/dL (Negative) Urine Leukocyte Esterase Negative /uL (Negative) Urine RBC <1 /hpf (0 - 3) Urine WBC <1 /hpf (0 - 3) Urine Squamous Epithelial Cells None seen /hpf (<5) Urine Bacteria None seen /hpf (None Seen) Urine Hyaline Casts Few /lpf (0 - 2) Urine Mucus Few (None Seen) Urine Glucose Normal mg/dL (Normal) Assessment/Plan Assessment/Plan Abdominal pain Cholelithiasis Hypertension Acute cholecystitis Plan 03/14/2024: Continue clear liquid diet Surgical consultation Resume home medications Hydralazine p.r.n. for hypertension Code Advance directives discussed for more than 15 minutes 03/15/2024: Surgical consult is still pending Monitor the patient closely Clear liquid diet Pain management as needed 03/16/2024: Pain management as needed Acute on chronic cholecystitis status post laparoscopic cholecystectomy Continue IV fluids Observed in the hospital overnight 03/17/2024: Start full liquid diet per surgery recommendations Start broad-spectrum antibiotics Rocephin and metronidazole Surgery is following Advance diet slowly as tolerated Out of bed and physical therapy Pain management as needed Continue IV fluids Monitor closely in the hospital Plan discussed with: Patient My Orders Orders - LELO NOLNA MD Procedure Category Date Status Time Hydromorphone Hcl Inj PHA 03/16/24 In Process (Dilaudid Innjecti 16:00 Pt Request For Service PT 03/17/24 Logged 11:23 Date of Service: Mar 17, 2024 Billing Provider: LELO NOLAN MD Common Visit Codes: [id number] INP/OBS CARE(HIGH) LELO NOLAN MD Mar 17, 2024 11:40
[2024-03-17] MEDS: cefTRIAXone 1GM/50ML D5W 50 ML IV ONE (12:23)
[2024-03-17] MEDS: metroNIDAZOLE 500MG/100ML 100 ML IV SCH (14:02)
[2024-03-17] MEDS: TEMAZEPAM 15 MG CAP PO PRN (21:25)
[2024-03-18] VITALS (9 sets, daily range): BP systolic 106–151; BP diastolic 57–81; PULSE 70–91; RESP 16–18; TEMP 97.8–99.1; O2SAT 95–97
[2024-03-18 06:04] LABS: Basophils # (auto) 0.1 10 ^3/uL (0-0.2); Eosinophils # (auto) 0.3 10 ^3/uL (0-0.8); Eosinophils % (auto) 3.7 % (0.0-7.0); Hematocrit 39.2 % (41.0-53.0); Hemoglobin 13.3 g/dL (13.5-17.5); Lymphocytes # (auto) 1.3 10 ^3/uL (0.4-5.4); Lymphocytes % (auto) 14.7 % (10.0-50.0); Mean Corpuscular Hemoglobin 28.7 pg (28.0-32.0); Mean Corpuscular Volume 84.4 fL (80.0-100.0); Monocytes # (auto) 0.6 10 ^3/uL (0-1.3); Monocytes % (auto) 7.1 % (0.0-12.0); Neutrophils # (auto) 6.4 10 ^3/uL (1.6-8.6); Neutrophils % (auto) 73.5 % (37.0-80.0); Platelet Count (auto) 228 10^3/uL (140-450); Red Blood Cells 4.64 10^6/uL (4.5-5.90); White Blood Cell 8.7 10^3/uL (4.4-10.8)
[2024-03-18] MEDS: cefTRIAXone 1GM/50ML D5W 50 ML IV SCH (08:27)
--- NOTE | 2024-03-18 11:30 | DVHPN2 ---
Progress Note Date Seen: Mar 18, 2024 Medical Necessity Reason Pt with a Central, PICC or Fol: No Objective vital signs Vital Sign Date Time Temp Pulse Resp B/P (MAP) Pulse Ox O2 Delivery O2 Flow Rate FiO2 03/18/24 08:28 151/79 03/18/24 08:10 91 17 95 Room Air* 0 03/18/24 05:00 98.6 98.6 Total Intake and Output 03/17/24 03/17/24 03/18/24 15:00 23:00 07:00 Intake Total 50 ml 1000 ml 500 ml Output Total 625 ml 500 ml 1450 ml Balance -575 ml 500 ml -950 ml medications Current Medications Medications Dose Ordered Sig/Surjit Route Start Time Stop Time Status Last Admin Dose Admin Acetaminophen/ Hydrocodone Bitart 1 tab Q4HP PRN PO 03/13/24 23:00 03/16/24 17:05 1 TAB Temazepam 15 mg QHSP PRN PO 03/13/24 23:00 03/17/24 21:25 15 MG Ondansetron HCl 4 mg Q4HP PRN IV 03/13/24 23:00 03/17/24 07:19 4 MG Acetaminophen 650 mg Q6HP PRN PO 03/13/24 23:00 Lisinopril 10 mg DAILY PO 03/14/24 10:00 03/18/24 08:28 10 MG Tamsulosin HCl 0.4 mg QPM PO 03/14/24 18:00 03/17/24 17:43 0.4 MG Hydralazine HCl 10 mg Q6HP PRN IV 03/14/24 14:30 03/17/24 18:24 10 MG Potassium Chloride/Dextrose/ Sod Cl 1,000 ml @ 100 mls/hr Q10H IV 03/15/24 12:15 03/18/24 08:28 100 MLS/HR Hydromorphone HCl 0.5 mg Q4HPRN PRN IV 03/16/24 16:00 03/17/24 07:20 0.5 MG Ceftriaxone Sodium 50 ml @ 100 mls/hr DAILY@09 IV 03/18/24 09:00 03/18/24 08:27 100 MLS/HR Metronidazole 100 ml @ 100 mls/hr Q8HR IV 03/17/24 14:00 11/22/24 05:35 100 MLS/HR laboratory and microbiology Laboratory Tests 03/18/24 05:47 03/17/24 04:40 Test 03/17/24 04:40 Range/Units Serum Glucose 123 H 74-106 mg/dL Problem List/Assessment/Plan Problem List/Assessment/Plan 03/17/24 feels"better",abdom,en appropriately tender, drainage bile stained, wounds clean and well approximated. advance diet, possibly DC in am tomorrow depending on labs and condition 03/18/24 doing well ambulating, po intake tolerated, normal bowel and bladder activity, may be discharged with po antibiotics for another 3 to 5 days with drain in place, return to see me in ten days, may shower diet as tolerated Plan discussed with: Patient DIVINA OLEARY MD Mar 18, 2024 11:30
[2024-03-18] MEDS ORDERED: AUG875T PO (11:46)
--- NOTE | 2024-03-18 11:49 | DVHDS2 ---
Discharge Summary Date of Admission Mar 13, 2024 at 22:56 Date of Discharge: Mar 18, 2024 Labs/Diagnostic Data: Laboratory Results Test 03/18/24 05:47 03/17/24 04:40 03/15/24 07:57 03/13/24 16:46 White Blood Count 8.7 10^3/uL (4.4-10.8) Red Blood Count 4.64 10^6/uL (4.5-5.90) Hemoglobin 13.3 g/dL (13.5-17.5) Hematocrit 39.2 % (41.0-53.0) Mean Corpuscular Volume 84.4 fL (80.0-100.0) Mean Corpuscular Hemoglobin 28.7 pg (28.0-32.0) Mean Corpuscular Hemoglobin Concent 34.0 g/dL (32.0-36.0) Red Cell Distribution Width 14.0 % (11.8-14.3) Platelet Count 228 10^3/uL (140-450) Mean Platelet Volume 8.0 fL (6.9-10.8) Neutrophils (%) (Auto) 73.5 % (37.0-80.0) Lymphocytes (%) (Auto) 14.7 % (10.0-50.0) Monocytes (%) (Auto) 7.1 % (0.0-12.0) Eosinophils (%) (Auto) 3.7 % (0.0-7.0) Basophils (%) (Auto) 1.0 % (0.0-2.0) Neutrophils # (Auto) 6.4 10 ^3/uL (1.6-8.6) Lymphocytes # (Auto) 1.3 10 ^3/uL (0.4-5.4) Monocytes # (Auto) 0.6 10 ^3/uL (0-1.3) Eosinophils # (Auto) 0.3 10 ^3/uL (0-0.8) Basophils # (Auto) 0.1 10 ^3/uL (0-0.2) Nucleated Red Blood Cells 0.0 % Total Bilirubin 0.7 mg/dL (0.2-1.0) Sodium Level 137 mmol/L (136-145) Potassium Level 4.3 mmol/L (3.5-5.1) Chloride Level 105 mmol/L (98-107) Carbon Dioxide Level 24 mmol/L (20-31) Anion Gap 8 (5-15) Blood Urea Nitrogen 11 mg/dL (9-23) Creatinine 0.90 mg/dL (0.700-1.30) Glomerular Filtration Rate Calc 90 mL/min (>90) BUN/Creatinine Ratio 12.2 (10.0-20.0) Serum Glucose 123 mg/dL (74-106) Calcium Level 9.4 mg/dL (8.7-10.4) Magnesium Level 2.1 mg/dL (1.6-2.6) Aspartate Amino Transferase (AST) 25 U/L (13-40) Alanine Aminotransferase (ALT) 30 U/L (7-40) Alkaline Phosphatase 81 U/L (46-116) Total Protein 6.0 g/dL (5.7-8.2) Albumin 3.8 g/dL (3.2-4.8) Prothrombin Time 11.4 sec (9.3-11.8) Prothrombin Time INR 1.08 (0.9-1.15) Activated Partial Thromboplast Time 28.7 SEC (24.5-34.5) Lipase 77 U/L (12-53) Test 03/13/24 16:39 Urine Color Yellow (Yellow) Urine Clarity Clear (Clear) Urine pH 5.0 (5.0-9.0) Urine Specific [place] 1.026 (1.001-1.035) Urine Protein Negative (Negative) Urine Ketones Trace (Negative) Urine Blood Negative /uL (Negative) Urine Nitrite Negative (Negative) Urine Bilirubin Negative (Negative) Urine Urobilinogen Normal mg/dL (Negative) Urine Leukocyte Esterase Negative /uL (Negative) Urine RBC <1 /hpf (0 - 3) Urine WBC <1 /hpf (0 - 3) Urine Squamous Epithelial Cells None seen /hpf (<5) Urine Bacteria None seen /hpf (None Seen) Urine Hyaline Casts Few /lpf (0 - 2) Urine Mucus Few (None Seen) Urine Glucose Normal mg/dL (Normal) Other Laboratory Tests 03/18/24 05:47 03/17/24 04:40 Brief Hx & Hospital Course: Final diagnoses: Abdominal pain due to cholecystitis Cholelithiasis Hypertension Acute cholecystitis on chronic cholecystitis 73-year-old male who was admitted for abdominal pain which was recurrent. Evaluation showed cholelithiasis. He was very symptomatic with abdominal pain and therefore surgery was recommended He underwent surgery successfully with no complications however it was found to have acute on chronic cholecystitis, it was difficult gallbladder removal per the surgeon Overall he did well afterwards. He is tolerating his diet He is on soft mechanical diet now Dr. Quinones has seen him again and cleared him for discharge He will go home with a RODDY drain on Augmentin for 5 days and follow up with Dr. Quinones in 10 days Condition at Discharge: Stable Final Diagnosis/Problems List Acute on chronic cholecystitis status post laparoscopic cholecystectomy Discharge Disposition: Home SNF Discharge Will this Physician continue t: No Discharge Instruct/Medications Diet: Cardiac 2g Na,low cholest Activity: No Restrictions, As Tolerated Medications: Augmentin 875 bid x 5 days Discharge Statement: "Patient was advised to return to the ER or call 911 if any headaches, dizziness, shortness of breath, chest pain, abdominal pain, bleeding, fevers, or worsening of medical condition. Patient was counseled about treatment plan, medications, possible side effects, patientverbalized understanding. All questions were answered to the best of my ability. This discharge took greater then 30 minutes in planning, reviewing documentation, counseling the patient, and discussing with other team members." ASSESSMENT ASSESSMENT Assessment Acute on chronic cholecystitis status post laparoscopic cholecystectomy Date of Service: Mar 18, 2024 Billing Provider: LELO NOLAN MD Common Visit Codes: [id number] DISCH DAY >30min LELO NOLAN MD Mar 18, 2024 11:49
[2024-03-19 01:00] VITALS: BP 135/78; PULSE 100; RESP 18; TEMP 98; O2SAT 97
[2024-03-19 05:00] VITALS: BP 116/60; PULSE 108; RESP 18; TEMP 98.2; O2SAT 96
--- NOTE | 2024-03-19 08:06 | DVHPN2 ---
Progress Note Date Seen: Mar 19, 2024 Medical Necessity Reason Pt with a Central, PICC or Fol: No Objective vital signs Vital Sign Date Time Temp Pulse Resp B/P (MAP) Pulse Ox O2 Delivery O2 Flow Rate FiO2 03/19/24 05:00 98.2 108 18 116/60 (78) 96 98.2 03/18/24 20:00 Room Air* 0 21 Total Intake and Output 03/18/24 03/18/24 03/19/24 15:00 23:00 07:00 Intake Total 100 ml 1550 ml 400 ml Output Total 200 ml Balance 100 ml 1550 ml 200 ml medications Current Medications Medications Dose Ordered Sig/Surjit Route Start Time Stop Time Status Last Admin Dose Admin Acetaminophen/ Hydrocodone Bitart 1 tab Q4HP PRN PO 03/13/24 23:00 03/18/24 15:27 1 TAB Temazepam 15 mg QHSP PRN PO 03/13/24 23:00 03/18/24 21:41 15 MG Ondansetron HCl 4 mg Q4HP PRN IV 03/13/24 23:00 03/18/24 15:26 4 MG Acetaminophen 650 mg Q6HP PRN PO 03/13/24 23:00 Lisinopril 10 mg DAILY PO 03/14/24 10:00 03/18/24 08:28 10 MG Tamsulosin HCl 0.4 mg QPM PO 03/14/24 18:00 03/18/24 17:49 0.4 MG Hydralazine HCl 10 mg Q6HP PRN IV 03/14/24 14:30 03/17/24 18:24 10 MG Potassium Chloride/Dextrose/ Sod Cl 1,000 ml @ 100 mls/hr Q10H IV 03/15/24 12:15 03/18/24 08:28 100 MLS/HR Hydromorphone HCl 0.5 mg Q4HPRN PRN IV 03/16/24 16:00 03/17/24 07:20 0.5 MG Ceftriaxone Sodium 50 ml @ 100 mls/hr DAILY@09 IV 03/18/24 09:00 03/18/24 08:27 100 MLS/HR Metronidazole 100 ml @ 100 mls/hr Q8HR IV 03/17/24 14:00 03/19/24 05:22 100 MLS/HR laboratory and microbiology Laboratory Tests 03/18/24 05:47 03/17/24 04:40 Test 03/17/24 04:40 Range/Units Serum Glucose 123 H 74-106 mg/dL Problem List/Assessment/Plan Problem List/Assessment/Plan 03/17/24 feels"better",abdom,en appropriately tender, drainage bile stained, wounds clean and well approximated. advance diet, possibly DC in am tomorrow depending on labs and condition 03/18/24 doing well ambulating, po intake tolerated, normal bowel and bladder activity, may be discharged with po antibiotics for another 3 to 5 days with drain in place, return to see me in ten days, may shower diet as tolerated 03/19/24 remained in the hospital because "blood came out of the tube", explained that the increase of bloody drainage is expected once he resumes normal ambulation (WHICH HE HAS), cbc is stable, HE CAN GO HOME TODAY, RETURN TO SEE ME IN ABOUT TEN DAYs Plan discussed with: Patient DIVINA OLEARY MD Mar 19, 2024 08:06
[2024-03-19 09:00] VITALS: BP 125/73; PULSE 114; RESP 20; TEMP 99.4; O2SAT 91
--- NOTE | 2024-03-19 09:41 | DVHPN2 ---
Subjective He was supposed to be go home yesterday but because he had lots of drainage in the RODDY drain he was worried so he was kept overnight Surgery check them again this morning and cleared him for discharge Changes from previous H/P or p: Changes Objective Vitals Vital Signs Date Time Temp Pulse Resp B/P (MAP) Pulse Ox O2 Delivery O2 Flow Rate FiO2 03/19/24 05:00 98.2 108 18 116/60 (78) 96 98.2 03/18/24 20:00 Room Air* 0 21 Intake/Output Intake and Output 03/19/24 07:00 Intake Total 2050 ml Output Total 200 ml Balance 1850 ml Intake Oral 1400 ml IV Total 650 ml Output Urine Total 200 ml # Voids 3 # Bowel Movements 2 General Appearance: Alert, Oriented X3, Cooperative, mild distress Lungs: Clear to auscultation, Normal air movement Cardiovascular: Regular rate, Normal S1, Normal S2, No murmurs Abdomen: Normal bowel sounds, Soft, No tenderness, Other (Right upper quadrant tenderness) Extremities: No edema Medications Current Medications Medications Dose Ordered Sig/Surjit Route Start Time Stop Time Status Last Admin Dose Admin Acetaminophen/ Hydrocodone Bitart 1 tab Q4HP PRN PO 03/13/24 23:00 03/18/24 15:27 1 TAB Temazepam 15 mg QHSP PRN PO 03/13/24 23:00 03/18/24 21:41 15 MG Ondansetron HCl 4 mg Q4HP PRN IV 03/13/24 23:00 03/18/24 15:26 4 MG Acetaminophen 650 mg Q6HP PRN PO 03/13/24 23:00 Lisinopril 10 mg DAILY PO 03/14/24 10:00 03/18/24 08:28 10 MG Tamsulosin HCl 0.4 mg QPM PO 03/14/24 18:00 03/18/24 17:49 0.4 MG Hydralazine HCl 10 mg Q6HP PRN IV 03/14/24 14:30 03/17/24 18:24 10 MG Potassium Chloride/Dextrose/ Sod Cl 1,000 ml @ 100 mls/hr Q10H IV 03/15/24 12:15 03/18/24 08:28 100 MLS/HR Hydromorphone HCl 0.5 mg Q4HPRN PRN IV 03/16/24 16:00 03/17/24 07:20 0.5 MG Ceftriaxone Sodium 50 ml @ 100 mls/hr DAILY@09 IV 03/18/24 09:00 03/18/24 08:27 100 MLS/HR Metronidazole 100 ml @ 100 mls/hr Q8HR IV 03/17/24 14:00 03/19/24 05:22 100 MLS/HR Laboratory Results Laboratory Tests 03/17/24 04:40 03/18/24 05:47 Urinalysis Test 03/13/24 16:39 Urine Color Yellow (Yellow) Urine Clarity Clear (Clear) Urine pH 5.0 (5.0-9.0) Urine Specific [place] 1.026 (1.001-1.035) Urine Protein Negative (Negative) Urine Ketones Trace (Negative) Urine Blood Negative /uL (Negative) Urine Nitrite Negative (Negative) Urine Bilirubin Negative (Negative) Urine Urobilinogen Normal mg/dL (Negative) Urine Leukocyte Esterase Negative /uL (Negative) Urine RBC <1 /hpf (0 - 3) Urine WBC <1 /hpf (0 - 3) Urine Squamous Epithelial Cells None seen /hpf (<5) Urine Bacteria None seen /hpf (None Seen) Urine Hyaline Casts Few /lpf (0 - 2) Urine Mucus Few (None Seen) Urine Glucose Normal mg/dL (Normal) Assessment/Plan Assessment/Plan Abdominal pain Cholelithiasis Hypertension Acute cholecystitis Plan 03/14/2024: Continue clear liquid diet Surgical consultation Resume home medications Hydralazine p.r.n. for hypertension Code Advance directives discussed for more than 15 minutes 03/15/2024: Surgical consult is still pending Monitor the patient closely Clear liquid diet Pain management as needed 03/16/2024: Pain management as needed Acute on chronic cholecystitis status post laparoscopic cholecystectomy Continue IV fluids Observed in the hospital overnight 03/17/2024: Start full liquid diet per surgery recommendations Start broad-spectrum antibiotics Rocephin and metronidazole Surgery is following Advance diet slowly as tolerated Out of bed and physical therapy Pain management as needed Continue IV fluids Monitor closely in the hospital 03/19/2024: Discharged home Augmentin was sent to the pharmacy Pain management with Tylenol as needed Educated the patient how to empty the RODDY drain Cleared for discharge Plan discussed with: Patient My Orders Orders - LELO NOLAN MD Procedure Category Date Status Time Discharge DISCHARGE 03/19/24 Transmitted 09:36 Date of Service: Mar 19, 2024 Billing Provider: LELO NOLAN MD Common Visit Codes: [id number] INP/OBS CARE(HIGH) LELO NOLAN MD Mar 19, 2024 09:41
== END 2024-03-19 12:37 | disposition home or self-care (01) | DRG 419 ==
LOC: ER 16:08 → EDUNIT# 22:56 → OVERFLOW 22:56 → CENTRAL 22:56 → OVERFLOW 03-14 00:02 → CENTRAL 03-14 16:53
PROVIDERS: ADMIT Nurse Practitioner; ATTEND Internal Medicine Geriatric Medicine
PROC: 0FT44ZZ Resection of Gallbladder, Percutaneous Endoscopic Approach (ICD-10-PCS; principal; 2024-03-16 11:15)
DX: K80.12 Calculus of gallbladder with acute and chronic cholecystitis without obstruction (principal); I10 Essential (primary) hypertension; E66.9 Obesity, unspecified; D72.829 Elevated white blood cell count, unspecified; Z82.5 Family history of asthma and other chronic lower respiratory diseases; Z79.899 Other long term (current) drug therapy; Z84.1 Family history of disorders of kidney and ureter; Z68.21 Body mass index [BMI] 21.0-21.9, adult
CPT/HCPCS: 36415; 71045; 76705; 78226; 80048; 80053; 81001; 82247; 83690; 83735; 85025; 85610; 85730; 86850; 86900; 86901; 97163; G0378; J1885; J2405; J3490

== ENCOUNTER → 2024-03-29 | Outpatient (CLI) | payer OTHER, MEDICAID ==
[~2024-03-29] MED LIST changes: +AUG875T PO; -IBUP-1456 PO; -LEVO750T40 PO; -METR-344 PO; -PRED20TA2 PO; +TAMS0.4C39 PO
== END | disposition home or self-care (01) ==
LOC: LAB 11:14
PROVIDERS: ATTEND Internal Medicine
DX: N40.1 Benign prostatic hyperplasia with lower urinary tract symptoms (principal)
CPT/HCPCS: 84153

== ENCOUNTER → 2024-03-30 | Outpatient (CLI) | payer OTHER, MEDICAID | END | disposition home or self-care (01) | LOC: LAB 12:54 | PROVIDERS: ATTEND Internal Medicine | DX: K81.9 Cholecystitis, unspecified (principal) | CPT/HCPCS: 87205 ==

== ENCOUNTER → 2024-04-04 | Outpatient (CLI) | payer OTHER, MEDICAID ==
[2024-04-04 09:02] LABS: Urine Bacteria None Seen /hpf (None Seen)
[2024-04-04 09:57] LABS: Alanine Aminotransferase 16 U/L (7-40); Albumin 3.9 g/dL (3.2-4.8); Anion Gap 7 (5-15); Aspartate Aminotransferase 16 U/L (13-40); BUN/Creatinine Ratio 8.6 (10.0-20.0); Basophils # (auto) 0.1 10 ^3/uL (0-0.2); Basophils % (auto) 0.7 % (0.0-2.0); Calcium 9.4 mg/dL (8.7-10.4); Carbon Dioxide 27 mmol/L (20-31); Chloride 105 mmol/L (98-107); Cholesterol 148 mg/dL (< 200); Eosinophils # (auto) 0.2 10 ^3/uL (0-0.8); Eosinophils % (auto) 2.5 % (0.0-7.0); Glucose 96 mg/dL (74-106); Hematocrit 31.1 % (41.0-53.0); Hemoglobin 10.5 g/dL (13.5-17.5); LDL Cholesterol 96 mg/dL (< 100); Lymphocytes # (auto) 1.3 10 ^3/uL (0.4-5.4); Lymphocytes % (auto) 14.9 % (10.0-50.0); Mean Corpuscular Hemoglobin 28.2 pg (28.0-32.0); Mean Corpuscular Hgb Conc. 33.9 g/dL (32.0-36.0); Mean Corpuscular Volume 83.2 fL (80.0-100.0); Monocytes # (auto) 0.4 10 ^3/uL (0-1.3); Monocytes % (auto) 4.6 % (0.0-12.0); Neutrophils # (auto) 6.8 10 ^3/uL (1.6-8.6); Neutrophils % (auto) 77.3 % (37.0-80.0); Platelet Count (auto) 618 10^3/uL (140-450); Red Blood Cells 3.73 10^6/uL (4.5-5.90); Red Cell Distribution Width 14.3 % (11.8-14.3); Sodium 139 mmol/L (136-145); Triglycerides 99 mg/dL (< 150); White Blood Cell 8.8 10^3/uL (4.4-10.8)
[2024-04-04 09:58] LABS: Bilirubin, Total 0.5 mg/dL (0.2-1.0); Total Protein 6.6 g/dL (5.7-8.2)
[2024-04-04 10:00] LABS: Urine Blood Negative /uL (Negative); Urine Clarity Clear (Clear); Urine Color Yellow (Yellow); Urine Mucus FEW (None Seen); Urine Protein, UAD TRACE (Negative); Urine Specific Gravity 1.021 (1.001-1.035); Urine Urobilinogen Normal (Negative); Urine WBC 2 /hpf (0 - 3); Urine pH 5.5 (5.0-9.0)
[2024-04-04 10:02] LABS: Alkaline Phosphatase 136 U/L (46-116); Blood Urea Nitrogen 7 mg/dL (9-23); HDL Cholesterol 33 mg/dL (40-59); Potassium 3.3 mmol/L (3.5-5.1)
[2024-04-04 10:34] LABS: Hepatitis B Core Total AB Negative (Negative)
[2024-04-04 12:40] LABS: Hepatitis B Surface Antibody Negative (Negative); Hepatitis B Surface Antigen Negative (Negative); Hepatitis C Antibody Negative (Negative)
[2024-04-04 12:41] LABS: Hepatitis A Ab IgM Negative; Hepatitis A Total Antibody Positive (Negative)
== END | disposition home or self-care (01) ==
LOC: LAB 08:39
DX: Z12.11 Encounter for screening for malignant neoplasm of colon (principal); Z12.5 Encounter for screening for malignant neoplasm of prostate; Z00.00 Encounter for general adult medical examination without abnormal findings; N40.0 Benign prostatic hyperplasia without lower urinary tract symptoms; Z11.3 Encounter for screening for infections with a predominantly sexual mode of transmission; Z79.899 Other long term (current) drug therapy
CPT/HCPCS: 36415; 80053; 80061; 81001; 82306; 83036; 84153; 84443; 85025; 86704; 86706; 86708; 86709; 86803; 87340

== ENCOUNTER → 2024-07-14 | Outpatient (CLI) | payer OTHER, MEDICAID ==
[2024-07-14 08:06] LABS: Urine Bacteria None Seen /hpf (None Seen)
[2024-07-14 08:10] LABS: Basophils # (auto) 0.1 10 ^3/uL (0-0.2); Eosinophils # (auto) 0.4 10 ^3/uL (0-0.8); Lymphocytes # (auto) 1.6 10 ^3/uL (0.4-5.4); Monocytes # (auto) 0.4 10 ^3/uL (0-1.3); Neutrophils # (auto) 4.2 10 ^3/uL (1.6-8.6)
[2024-07-14 08:12] LABS: Basophils % (auto) 0.8 % (0.0-2.0); Hematocrit 44.9 % (41.0-53.0); Hemoglobin 14.5 g/dL (13.5-17.5); Lymphocytes % (auto) 24.2 % (10.0-50.0); Mean Corpuscular Hemoglobin 26.2 pg (28.0-32.0); Mean Corpuscular Hgb Conc. 32.3 g/dL (32.0-36.0); Monocytes % (auto) 5.8 % (0.0-12.0); Neutrophils % (auto) 63.2 % (37.0-80.0); Nucleated Red Blood Cells % 0.1 %; Platelet Count (auto) 258 10^3/uL (140-450); Red Blood Cells 5.54 10^6/uL (4.5-5.90); White Blood Cell 6.6 10^3/uL (4.4-10.8)
[2024-07-14 08:26] LABS: Urine Blood Negative /uL (Negative); Urine Clarity Clear (Clear); Urine Color Light-Yellow (Yellow); Urine Mucus FEW (None Seen); Urine Protein, UAD Negative (Negative); Urine Specific Gravity 1.021 (1.001-1.035); Urine Squamous Epithelial Cell FEW /hpf (<5); Urine Urobilinogen Normal (Negative); Urine WBC 1 /HPF (0-3); Urine pH 5.5 (5.0-9.0)
[2024-07-14 08:41] LABS: Alanine Aminotransferase 24 U/L (7-40); Albumin 4.6 g/dL (3.2-4.8); Alkaline Phosphatase 115 U/L (46-116); Anion Gap 6 (5-15); Aspartate Aminotransferase 22 U/L (13-40); BUN/Creatinine Ratio 13.9 (10.0-20.0); Blood Urea Nitrogen 14 mg/dL (9-23); Calcium 9.6 mg/dL (8.7-10.4); Carbon Dioxide 29 mmol/L (20-31); Chloride 105 mmol/L (98-107); Cholesterol 174 mg/dL (< 200); Glucose 95 mg/dL (74-106); HDL Cholesterol 46 mg/dL (40-59); Potassium 4.1 mmol/L (3.5-5.1); Sodium 140 mmol/L (136-145); Total Protein 7.3 g/dL (5.7-8.2); Triglycerides 109 mg/dL (< 150)
[2024-07-14 08:42] LABS: Bilirubin, Total 0.5 mg/dL (0.2-1.0); LDL Cholesterol 114 mg/dL (< 100)
[2024-07-14 09:27] LABS: % Iron Saturation 18.1 % (20-55)
== END | disposition home or self-care (01) ==
LOC: LAB 07:53
PROVIDERS: ATTEND Nurse Practitioner Family
DX: Z12.11 Encounter for screening for malignant neoplasm of colon (principal); I11.0 Hypertensive heart disease with heart failure; I50.9 Heart failure, unspecified; E78.5 Hyperlipidemia, unspecified; E55.9 Vitamin D deficiency, unspecified; D64.9 Anemia, unspecified; D47.3 Essential (hemorrhagic) thrombocythemia; Z79.899 Other long term (current) drug therapy
CPT/HCPCS: 36415; 80053; 80061; 81001; 82274; 82306; 82728; 83036; 83540; 83550; 85025